=== PATIENT | female | born 1945 | race African-American/Black ===

== ENCOUNTER 2021-12-09 09:42 | Inpatient (IN) ==
[2021-12-09] MEDS ORDERED: NITROGLYCERIN SL 0.4 MG TABLET SL ONE (10:03)
[2021-12-09] MEDS ORDERED: ONDANSETRON 4 MG/2 ML VIAL ONE ×2 (10:03→11:42)
[2021-12-09] MEDS ORDERED: MORPHINE 2 MG/1 ML SYRINGE ONE (10:03)
[2021-12-09] MEDS ORDERED: ENOXAPARIN 100 MG/ML SYRINGE SUBCUT STA (10:04)
[2021-12-09] MEDS ORDERED: ENOXAPARIN 100 MG/ML SYRINGE SUBCUT ONE (10:06)
[2021-12-09 10:22] LABS: Basophils % 0.4 % (0.0-0.8); Eosinophils # 0.2 10*3/uL (0.0-0.87); Eosinophils % 2.1 % (0.00-10.9); Hematocrit 36.9 VOL% (35.7-47.0); Hemoglobin 11.7 GM/DL (12.0-16.0); Immature Granulocytes % 0.4 %; Immature Granulocytes Absolute 0.03 #; Lymphocytes # 2.1 10*3/uL (1.4-4.0); Lymphocytes % 26.2 % (21.3-54.2); Mean Corpuscular HGB Conc 31.7 GM/DL (32-36); Mean Corpuscular Volume 81.8 FL (87-102); Mean Platelet Volume 11.3 FL (9.6-12.0); Monocytes # 0.5 10*3/uL (0.11-0.8); Monocytes % 6.1 % (1.7-12.7); Neutrophils % 64.8 % (38.7-73.9); Platelet Count 233 T/CUMM (130-400); Red Blood Count 4.51 MC/CUMM (3.8-5.5); Red Cell Distribution Width 14.7 % (9.3-17.3); White Blood Count 8.1 T/CUMM (4-12)
[2021-12-09] MEDS ORDERED: MIDAZOLAM 2 MG/2 ML VIAL ONE ×2 (10:30→10:56)
[2021-12-09] MEDS ORDERED: fentaNYL 100 MCG/2 ML VIAL ONE (10:30)
[2021-12-09 10:33] LABS: PT Patient Result 10.7 SECS (10.1-12.1)
[2021-12-09 10:45] LABS: Albumin 3.7 G/DL (3.4-5.0); Bilirubin,Total 0.6 MG/DL (0.20-1.00); Calcium 9.2 MG/DL (8.5-10.1); Osmolality,Calculated 287.1 MOS/KG (273-304); Total Protein 7.2 G/DL (6.4-8.2)
[2021-12-09] MEDS ORDERED: MORPHINE 2 MG/1 ML SYRINGE IV STA (10:50)
[2021-12-09] MEDS ORDERED: NITROGLYCERIN SL 0.4 MG TABLET SL STA (10:51)
[2021-12-09] MEDS ORDERED: ONDANSETRON 4 MG/2 ML VIAL IV STA (10:51)
[2021-12-09] MEDS ORDERED: TIROFIBAN 5,000 MCG/100 ML PREMIX IV ONE (10:51)
[2021-12-09] MEDS ORDERED: SODIUM CHLORIDE 0.9% 1,000 ML IV STA (10:52)
[2021-12-09] MEDS ORDERED: diphenhydrAMINE 50 MG/1 ML VIAL ONE (11:00)
[2021-12-09] MEDS ORDERED: TICAGRELOR 90 MG TABLET ONE (11:36)
[2021-12-09] MEDS ORDERED: ZALEPLON 5 MG CAPSULE PO PRN (11:45)
[2021-12-09] MEDS ORDERED: NITROGLYCERIN SL 0.4 MG TABLET SL PRN (11:51)
[2021-12-09] MEDS ORDERED: ALUMINUM/MAGNES/SIMETH MAX STR 30 ML UDCUP PO PRN (11:51)
[2021-12-09] MEDS ORDERED: ONDANSETRON 4 MG/2 ML VIAL IV PRN (11:51)
[2021-12-09] MEDS ORDERED: TIROFIBAN 5,000 MCG/100 ML PREMIX IV SCH (12:00)
[2021-12-09] MEDS ORDERED: SODIUM CHLORIDE 0.9% 1,000 ML IV SCH (12:00)
[2021-12-09] MEDS: TICAGRELOR 90 MG TABLET PO SCH (20:12)
[2021-12-09] MEDS: DILTIAZEM CD 240 MG CAPSULE PO SCH (20:12)
[2021-12-09] MEDS: APIXABAN 5 MG TABLET PO SCH (20:12)
[2021-12-09] MEDS ORDERED: METOPROLOL TARTRATE 25 MG TABLET PO SCH (21:00)
[2021-12-10 04:00] LABS: Basophils % 0.2 % (0.0-0.8); Eosinophils % 0.2 % (0.00-10.9); Hemoglobin 11.6 GM/DL (12.0-16.0); Immature Granulocytes % 0.4 %; Immature Granulocytes Absolute 0.04 #; Lymphocytes % 10.6 % (21.3-54.2); Mean Corpuscular HGB Conc 32.2 GM/DL (32-36); Mean Corpuscular Volume 79.6 FL (87-102); Mean Platelet Volume 11.5 FL (9.6-12.0); Monocytes # 0.7 10*3/uL (0.11-0.8); Monocytes % 7.8 % (1.7-12.7); Neutrophils % 80.8 % (38.7-73.9); Platelet Count 198 T/CUMM (130-400); Red Blood Count 4.52 MC/CUMM (3.8-5.5); Red Cell Distribution Width 14.7 % (9.3-17.3); White Blood Count 9.1 T/CUMM (4-12)
[2021-12-10 04:38] LABS: CKMB % 7.67 %; Risk Ratio 2.51; VLDL Cholesterol 19.6 MG/DL
[2021-12-10 04:39] LABS: High Sensitive Troponin I* 59414.2 ng/L (0-54)
[2021-12-10] MEDS ORDERED: METOPROLOL TARTRATE 5 MG/5 ML VIAL IV PRN (05:31)
[2021-12-10 05:40] LABS: Calcium 8.9 MG/DL (8.5-10.1); Osmolality,Calculated 280.4 MOS/KG (273-304); Potassium 3.5 MMOL/L (3.5-5.1)
[2021-12-10] MEDS: OLMESARTAN 20 MG TABLET PO SCH (08:54)
[2021-12-10] MEDS: PANTOPRAZOLE 40 MG TABLET PO SCH (08:54)
[2021-12-10] MEDS: APIXABAN 5 MG TABLET PO SCH ×2 (08:54→22:05)
[2021-12-10] MEDS: ASPIRIN EC 81 MG TABLET PO SCH (08:55)
[2021-12-10] MEDS: TICAGRELOR 90 MG TABLET PO SCH ×2 (08:55→22:04)
[2021-12-10] MEDS: NEBIVOLOL 5 MG TABLET PO SCH (08:55)
[2021-12-10] MEDS: DILTIAZEM CD 240 MG CAPSULE PO SCH ×2 (08:56→22:04)
[2021-12-10] MEDS ORDERED: CLOBETASOL 0.05% OINT 15 GM TUBE TOP PRN (09:33)
[2021-12-10] MEDS ORDERED: tiZANidine 4 MG TABLET PO PRN (09:36)
[2021-12-10] MEDS: HYDROCORTISONE 2.5% CREAM 30 GM TUBE TOP SCH ×2 (12:14→22:05)
[2021-12-10] MEDS: MONTELUKAST 10 MG TABLET PO SCH (12:14)
[2021-12-11 04:25] LABS: Basophils % 0.3 % (0.0-0.8); Eosinophils # 0.1 10*3/uL (0.0-0.87); Eosinophils % 0.6 % (0.00-10.9); Hematocrit 33.4 VOL% (35.7-47.0); Hemoglobin 10.9 GM/DL (12.0-16.0); Immature Granulocytes % 0.4 %; Immature Granulocytes Absolute 0.04 #; Lymphocytes # 1.3 10*3/uL (1.4-4.0); Lymphocytes % 13.3 % (21.3-54.2); Mean Corpuscular HGB Conc 32.6 GM/DL (32-36); Mean Corpuscular Volume 79.3 FL (87-102); Mean Platelet Volume 11.8 FL (9.6-12.0); Monocytes # 0.9 10*3/uL (0.11-0.8); Monocytes % 9.1 % (1.7-12.7); Neutrophils % 76.3 % (38.7-73.9); Platelet Count 193 T/CUMM (130-400); Red Blood Count 4.21 MC/CUMM (3.8-5.5); Red Cell Distribution Width 14.7 % (9.3-17.3); White Blood Count 9.5 T/CUMM (4-12)
[2021-12-11 04:39] LABS: Calcium 8.7 MG/DL (8.5-10.1); Osmolality,Calculated 285.1 MOS/KG (273-304); Potassium 3.6 MMOL/L (3.5-5.1)
[2021-12-11] MEDS: DILTIAZEM CD 240 MG CAPSULE PO SCH ×2 (09:52→20:48)
[2021-12-11] MEDS: OLMESARTAN 20 MG TABLET PO SCH (09:52)
[2021-12-11] MEDS: PANTOPRAZOLE 40 MG TABLET PO SCH (09:53)
[2021-12-11] MEDS: NEBIVOLOL 5 MG TABLET PO SCH (09:53)
[2021-12-11] MEDS: APIXABAN 5 MG TABLET PO SCH ×2 (09:53→20:49)
[2021-12-11] MEDS: TICAGRELOR 90 MG TABLET PO SCH ×2 (09:54→20:49)
[2021-12-11] MEDS: ASPIRIN EC 81 MG TABLET PO SCH (09:54)
[2021-12-11] MEDS: MONTELUKAST 10 MG TABLET PO SCH (09:54)
[2021-12-11] MEDS: HYDROCORTISONE 2.5% CREAM 30 GM TUBE TOP SCH ×2 (09:56→20:49)
[2021-12-12 05:15] LABS: Basophils % 0.4 % (0.0-0.8); Eosinophils # 0.2 10*3/uL (0.0-0.87); Eosinophils % 1.9 % (0.00-10.9); Hematocrit 31.4 VOL% (35.7-47.0); Hemoglobin 10.2 GM/DL (12.0-16.0); Immature Granulocytes % 0.5 %; Immature Granulocytes Absolute 0.04 #; Lymphocytes # 1.1 10*3/uL (1.4-4.0); Lymphocytes % 13.2 % (21.3-54.2); Mean Corpuscular HGB Conc 32.5 GM/DL (32-36); Mean Corpuscular Volume 80.1 FL (87-102); Mean Platelet Volume 11.6 FL (9.6-12.0); Monocytes # 0.9 10*3/uL (0.11-0.8); Monocytes % 10.2 % (1.7-12.7); Neutrophils % 73.8 % (38.7-73.9); Platelet Count 164 T/CUMM (130-400); Red Blood Count 3.92 MC/CUMM (3.8-5.5); Red Cell Distribution Width 14.7 % (9.3-17.3); White Blood Count 8.5 T/CUMM (4-12)
[2021-12-12 05:34] LABS: Calcium 8.8 MG/DL (8.5-10.1); Osmolality,Calculated 287.3 MOS/KG (273-304); Potassium 3.6 MMOL/L (3.5-5.1)
[2021-12-12] MEDS: NEBIVOLOL 5 MG TABLET PO SCH (09:58)
[2021-12-12] MEDS: ASPIRIN EC 81 MG TABLET PO SCH (10:06)
[2021-12-12] MEDS: APIXABAN 5 MG TABLET PO SCH ×2 (10:07→20:55)
[2021-12-12] MEDS: PANTOPRAZOLE 40 MG TABLET PO SCH (10:07)
[2021-12-12] MEDS: TICAGRELOR 90 MG TABLET PO SCH ×2 (10:07→20:55)
[2021-12-12] MEDS: DILTIAZEM CD 240 MG CAPSULE PO SCH ×2 (10:07→20:55)
[2021-12-12] MEDS: MONTELUKAST 10 MG TABLET PO SCH (10:08)
[2021-12-12] MEDS: OLMESARTAN 5 MG TABLET PO SCH (10:08)
[2021-12-12] MEDS: HYDROCORTISONE 2.5% CREAM 30 GM TUBE TOP SCH ×2 (10:10→20:55)
[2021-12-13 05:38] LABS: Basophils % 0.2 % (0.0-0.8); Eosinophils # 0.2 10*3/uL (0.0-0.87); Eosinophils % 2.4 % (0.00-10.9); Hematocrit 30.7 VOL% (35.7-47.0); Immature Granulocytes % 0.4 %; Immature Granulocytes Absolute 0.03 #; Lymphocytes # 0.9 10*3/uL (1.4-4.0); Mean Corpuscular HGB Conc 32.6 GM/DL (32-36); Mean Corpuscular Volume 79.9 FL (87-102); Monocytes # 0.7 10*3/uL (0.11-0.8); Monocytes % 8.7 % (1.7-12.7); Neutrophils % 77.3 % (38.7-73.9); Platelet Count 182 T/CUMM (130-400); Red Blood Count 3.84 MC/CUMM (3.8-5.5); Red Cell Distribution Width 14.8 % (9.3-17.3); White Blood Count 8.5 T/CUMM (4-12)
[2021-12-13 05:54] LABS: Calcium 8.6 MG/DL (8.5-10.1); Osmolality,Calculated 288.1 MOS/KG (273-304); Potassium 3.5 MMOL/L (3.5-5.1)
[2021-12-13] MEDS: MONTELUKAST 10 MG TABLET PO SCH (09:42)
[2021-12-13] MEDS: APIXABAN 5 MG TABLET PO SCH (09:42)
[2021-12-13] MEDS: ASPIRIN EC 81 MG TABLET PO SCH (09:42)
[2021-12-13] MEDS: OLMESARTAN 5 MG TABLET PO SCH (09:42)
[2021-12-13] MEDS: TICAGRELOR 90 MG TABLET PO SCH (09:42)
[2021-12-13] MEDS: PANTOPRAZOLE 40 MG TABLET PO SCH (09:42)
[2021-12-13] MEDS: DILTIAZEM CD 240 MG CAPSULE PO SCH (09:45)
[2021-12-13] MEDS: HYDROCORTISONE 2.5% CREAM 30 GM TUBE TOP SCH (09:46)
[2021-12-13] MEDS ORDERED: LEVALBUTEROL 1.25 MG/3 ML NEB RESP TX ONE (10:49)
[2021-12-13] MEDS ORDERED: FUROSEMIDE 40 MG/4 ML VIAL IV ONE (13:39)
[2021-12-13 16:57] VITALS: BP 119/77
[2021-12-14] MEDS ORDERED: OLMESARTAN 5 MG TABLET PO SCH (09:00)
== END 2021-12-13 18:08 | disposition home or self-care (01) | DRG 247 ==
LOC: EDUNIT# → EDBD → N.ED 09:42 → N.ICU 10:30 → SUATTDRO 12:27 → N.TELES 12-10 13:43
PROVIDERS: ADMIT Internal Medicine Cardiovascular Disease; ATTEND Internal Medicine Cardiovascular Disease
PROC: CLCCHCL (ICD-10-PCS; 2021-12-09 11:15)